=== PATIENT | male | born 1950 | race Caucasian/White ===

== ENCOUNTER → 2017-09-01 06:02 | Outpatient (CLI) | payer MEDICARE, OTHER, SELFPAY ==
[2017-09-01 07:47] LABS: AST(SGOT) 23 U/L (15-37); Alanine Aminotransfer ALT/SGPT 47 U/L (16-61); Albumin, Serum 3.5 g/dL (3.2-5.0); Alkaline Phosphatase 73 U/L (45-117); Bilirubin, Direct 0.09 mg/dL (0.00-0.30); Cholesterol 150 mg/dL (200); Globulin 3.2 g/dL (2.2-4.2); High Density Lipoprotein 61 mg/dL; Protein, Total 6.7 g/dL (6.4-8.2); Triglycerides 119 mg/dL; Very Low Density Lipoprotein 24 mg/dL (5-40)
== END ==
PROVIDERS: Family Provider Internal Medicine; PCP Internal Medicine; Visit Provider Internal Medicine Cardiovascular Disease
DX: E78.5 Hyperlipidemia, unspecified (principal); Z79.899 Other long term (current) drug therapy
CPT/HCPCS: 36415; 80061; 80076

== ENCOUNTER → 2017-09-24 09:30 | Outpatient (CLI) | payer MEDICARE, OTHER, SELFPAY ==
--- NOTE | 2017-09-24 09:33 | ECHOD_ITS ---
Reason For Study: Valve Replacement Procedure This was a 2D Doppler, Color Flow transthoracic echocardiogram. The exam was of adequate technical quality. Exam performed in department. Left Ventricle Normal LV size. Segmental dysfunction with preserved ejection fraction (see wall motion). The estimated ejection fraction is 60 %. Normal diastology for age. Basal inferoseptal: Hypokinetic. Mid-inferoseptal : Hypokinetic. Right Ventricle Normal RV size. Normal systolic function. Atria The left atrium is mildly enlarged. Normal right atrium. No doppler evidence for ASD. Mitral Valve There is no mitral annular calcification. Normal mitral valve. Trivial mitral valve insufficiency. Tricuspid Valve Normal tricuspid valve. Mild tricuspid valve insufficiency. Right ventricular systolic pressure estimated to be 27 mmHg. Aortic Valve Stable appearing bioprosthetic aortic valve apparatus. Trivial transvalvular insufficiency of the aortic valve. Pulmonic Valve The pulmonic valve is not well visualized. Mild (1+) pulmonic valve insufficiency. Great Vessels Mild to moderately dilated aortic root. Pericardium/Pleural No pericardial effusion. MMode/2D Measurements & Calculations LVIDd: 4.7 cm IVSd: 1.5 cm LVOT diam: 2.2 cm LVIDs: 2.5 cm LVPWd: 0.91 cm LVOT area: 3.7 cm2 RVDd: 3.8 cm FS: 46.2 % Ao root diam: 4.4 cm LAV(MOD-bp): 70.5 ml LA A4 area: 24.4 cm2 ACS: 1.3 cm LAV(MOD-bp) Indexed: 34.8 ml/m2 LA dimension: 5.3 cm LAV(MOD-sp2): 60.2 ml LAV(MOD-sp4): 73.7 ml RA A4 area: 16.2 cm2 Time Measurements MV dec time: 0.24 sec Doppler Measurements & Calculations MV E max octavio: 54.0 cm/sec Lat Peak E' Octavio: 14.8 cm/sec Med Peak E' Octavio: 6.3 cm/sec MV A max octavio: 68.3 cm/sec E/E' lat: 3.6 E/E' med: 8.5 MV E/A: 0.79 MV V2 max: 71.7 cm/sec MV P1/2t max octavio: 58.2 cm/sec Ao V2 max: 325.0 cm/sec MV max P.1 mmHg MV P1/2t: 83.9 msec Ao max P.3 mmHg MV V2 mean: 40.0 cm/sec MV dec slope: 203.2 cm/sec2 Ao V2 mean: 204.2 cm/sec MV mean P.73 mmHg MVA(P1/2t): 2.6 cm2 Ao mean P.3 mmHg MV V2 VTI: 20.6 cm Ao V2 VTI: 69.9 cm MVA(VTI): 6.2 cm2 ANSLEY(I,D): 1.8 cm2 ANSLEY(V,D): 1.4 cm2 LV V1 max: 127.8 cm/sec SV(LVOT): 127.6 ml PA V2 max: 154.1 cm/sec LV V1 max P.5 mmHg LV V1 mean P.1 mmHg LV V1 mean: 94.4 cm/sec LV V1 VTI: 34.7 cm TR max octavio: 247.0 cm/sec TR max P.4 mmHg Interpretation Summary Segmental dysfunction with preserved ejection fraction (see wall motion). The estimated ejection fraction is 60 %. The left atrium is mildly enlarged. Trivial mitral valve insufficiency. Mild tricuspid valve insufficiency. Stable appearing bioprosthetic aortic valve apparatus. Trivial transvalvular insufficiency of the aortic valve. Mild (1+) pulmonic valve insufficiency. 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 Right ventricular systolic pressure estimated to be 27 mmHg. Ordering Physician: Jake Beasley Referring Physician: Jake Beasley Performed By: Elmer Marcial RCS
== END ==
PROVIDERS: Family Provider Internal Medicine; PCP Internal Medicine; Visit Provider Internal Medicine Cardiovascular Disease
DX: I50.32 Chronic diastolic (congestive) heart failure (principal)
CPT/HCPCS: 93306

== ENCOUNTER → 2018-03-06 06:01 | Outpatient (CLI) | payer MEDICARE, OTHER, SELFPAY ==
[2018-03-06 07:56] LABS: AST(SGOT) 21 U/L (15-37); Alanine Aminotransfer ALT/SGPT 44 U/L (16-61); Albumin, Serum 3.6 g/dL (3.2-5.0); Alkaline Phosphatase 85 U/L (45-117); Bilirubin, Direct 0.14 mg/dL (0.00-0.30); Cholesterol 149 mg/dL (200); Globulin 3.5 g/dL (2.2-4.2); High Density Lipoprotein 54 mg/dL; Protein, Total 7.1 g/dL (6.4-8.2); Triglycerides 116 mg/dL; Very Low Density Lipoprotein 23 mg/dL (5-40)
== END ==
PROVIDERS: Family Provider Internal Medicine; PCP Internal Medicine; Referring Provider Internal Medicine Cardiovascular Disease; Visit Provider Internal Medicine Cardiovascular Disease
DX: E78.5 Hyperlipidemia, unspecified (principal)
CPT/HCPCS: 36415; 80061; 80076

== ENCOUNTER → 2018-09-17 | Outpatient (CLI) | payer MEDICARE, OTHER, SELFPAY ==
[2018-09-16 11:16] VITALS: BMI 27.9
[2018-09-17 08:17] LABS: AST(SGOT) 26 U/L (15-37); Alanine Aminotransfer ALT/SGPT 32 U/L (16-61); Albumin, Serum 3.7 g/dL (3.2-5.0); Alkaline Phosphatase 79 U/L (45-117); Bilirubin, Direct 0.15 mg/dL (0.00-0.30); Cholesterol 147 mg/dL (200); Globulin 3.4 g/dL (2.2-4.2); High Density Lipoprotein 44 mg/dL; Protein, Total 7.1 g/dL (6.4-8.2); Triglycerides 139 mg/dL; Very Low Density Lipoprotein 28 mg/dL (5-40)
== END | disposition home or self-care (01) ==
LOC: LAB 06:04
PROVIDERS: Family Provider Internal Medicine; PCP Internal Medicine; Referring Provider Internal Medicine Cardiovascular Disease; Visit Provider Internal Medicine Cardiovascular Disease
DX: E78.5 Hyperlipidemia, unspecified (principal)
CPT/HCPCS: 36415; 80061; 80076

== ENCOUNTER → 2019-04-07 06:02 | Outpatient (CLI) | payer MEDICARE, OTHER, SELFPAY ==
[2018-09-16 11:16] VITALS: BMI 27.9
[2019-04-07 08:04] LABS: AST(SGOT) 29 U/L (15-37); Alanine Aminotransfer ALT/SGPT 39 U/L (16-61); Albumin, Serum 3.9 g/dL (3.2-5.0); Alkaline Phosphatase 92 U/L (45-117); Bilirubin, Direct 0.14 mg/dL (0.00-0.30); Cholesterol 148 mg/dL (200); Globulin 3.6 g/dL (2.2-4.2); High Density Lipoprotein 49 mg/dL; Protein, Total 7.5 g/dL (6.4-8.2); Triglycerides 127 mg/dL; Very Low Density Lipoprotein 25 mg/dL (5-40)
== END ==
PROVIDERS: Family Provider Internal Medicine; PCP Internal Medicine; Referring Provider Internal Medicine Cardiovascular Disease; Visit Provider Internal Medicine Cardiovascular Disease
DX: E78.5 Hyperlipidemia, unspecified (principal)
CPT/HCPCS: 36415; 80061; 80076

== ENCOUNTER → 2019-09-21 12:27 | Outpatient (CLI) | payer MEDICARE, OTHER, SELFPAY ==
[2019-04-12 13:23] VITALS: BMI 28.1
--- NOTE | 2019-09-21 12:28 | ECHOD_ITS ---
Reason For Study: MURMUR Procedure This was a 2D Doppler, Color Flow transthoracic echocardiogram. The exam was of adequate technical quality. Exam performed in department. Left Ventricle Normal LV size. Left ventricular systolic function is normal. The estimated ejection fraction is 65 %. No evidence for diastolic dysfunction. No regional wall motion abnormalities noted. Right Ventricle Normal RV size. Normal systolic function. Atria The left atrium is mildly enlarged. Normal right atrium. No doppler evidence for ASD. Mitral Valve There is no mitral annular calcification. Normal mitral valve. Trivial mitral valve insufficiency. Tricuspid Valve Normal tricuspid valve. Mild tricuspid valve insufficiency. Right ventricular systolic pressure estimated to be 25 mmHg. Aortic Valve Mild focal aortic valve calcification. Mild to moderate aortic stenosis. Stable appearing bioprosthetic aortic valve apparatus. Mild transvalvular insufficiency of the aortic valve. Pulmonic Valve The pulmonic valve is not well visualized. Trivial pulmonic valve insufficiency. Great Vessels Mild to moderately dilated aortic root. Pericardium/Pleural No pericardial effusion. MMode/2D Measurements & Calculations LVIDd: 4.2 cm IVSd: 1.1 cm LVOT diam: 2.0 cm LVIDs: 3.0 cm LVPWd: 0.95 cm LVOT area: 3.2 cm2 RVDd: 4.7 cm FS: 30.3 % Ao root diam: 4.5 cm LAV(MOD-bp): 68.9 ml LA A4 area: 22.0 cm2 LAV(MOD-bp) Indexed: 33.7 ml/m2 LAV(MOD-sp2): 71.1 ml LAV(MOD-sp4): 63.9 ml RA A4 area: 16.3 cm2 Time Measurements MV dec time: 0.30 sec Doppler Measurements & Calculations MV E max octavio: 44.8 cm/sec Lat Peak E' Octavio: 11.3 cm/sec Med Peak E' Octaivo: 5.4 cm/sec MV A max octavio: 61.8 cm/sec E/E' lat: 4.0 E/E' med: 8.4 MV E/A: 0.73 Ao V2 max: 302.5 cm/sec AI max octavio: 400.5 cm/sec LV V1 max: 123.6 cm/sec Ao max P.6 mmHg AI max P.2 mmHg LV V1 max P.1 mmHg Ao V2 mean: 224.4 cm/sec AI dec slope: 304.1 cm/sec2 LV V1 mean P.4 mmHg Ao mean P.1 mmHg AI P1/2t: 385.7 msec LV V1 mean: 87.2 cm/sec Ao V2 VTI: 68.2 cm LV V1 VTI: 29.7 cm ANSLEY(I,D): 1.4 cm2 ANSLEY(V,D): 1.3 cm2 SV(LVOT): 96.2 ml PA V2 max: 134.6 cm/sec PI end-d octavio: 96.5 cm/sec TR max octavio: 236.1 cm/sec TR max P.3 mmHg Interpretation Summary Left ventricular systolic function is normal. The estimated ejection fraction is 65 %. The left atrium is mildly enlarged. Trivial mitral valve insufficiency. Mild tricuspid valve insufficiency. Stable appearing bioprosthetic aortic valve apparatus. Mild focal aortic valve calcification. Mild to moderate aortic stenosis. Mild transvalvular insufficiency of the aortic valve. Trivial pulmonic valve insufficiency. 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 Right ventricular systolic pressure estimated to be 25 mmHg. No evidence for diastolic dysfunction. Ordering Physician: Jake Beasley Referring Physician: ASHLEY AIKEN Performed By: Trixie Snider, RDCS, RVT
== END ==
PROVIDERS: PCP Internal Medicine; Referring Provider Internal Medicine Cardiovascular Disease; Visit Provider Internal Medicine Cardiovascular Disease
DX: I71.2 Thoracic aortic aneurysm, without rupture (principal); Z95.3 Presence of xenogenic heart valve
CPT/HCPCS: 93306

== ENCOUNTER → 2019-10-12 | Outpatient (CLI) | payer MEDICARE, OTHER, SELFPAY ==
[2019-04-12 13:23] VITALS: BMI 28.1
[2019-10-12 07:53] LABS: AST(SGOT) 26 U/L (15-37); Alanine Aminotransfer ALT/SGPT 37 U/L (16-61); Albumin, Serum 3.9 g/dL (3.2-5.0); Alkaline Phosphatase 102 U/L (45-117); Bilirubin, Direct 0.13 mg/dL (0.00-0.30); Cholesterol 146 mg/dL (200); Globulin 3.6 g/dL (2.2-4.2); High Density Lipoprotein 49 mg/dL; Protein, Total 7.5 g/dL (6.4-8.2); Triglycerides 114 mg/dL; Very Low Density Lipoprotein 23 mg/dL (5-40)
== END | disposition home or self-care (01) ==
PROVIDERS: PCP Internal Medicine; Referring Provider Internal Medicine Cardiovascular Disease; Visit Provider Internal Medicine Cardiovascular Disease
DX: E78.00 Pure hypercholesterolemia, unspecified (principal)
CPT/HCPCS: 36415; 80061; 80076

== ENCOUNTER → 2020-03-31 06:09 | Outpatient (CLI) | payer MEDICARE, OTHER, SELFPAY ==
[2019-10-18 10:18] VITALS: BMI 27.9
[2020-03-31 07:40] LABS: AST(SGOT) 26 U/L (15-37); Alanine Aminotransfer ALT/SGPT 41 U/L (16-61); Albumin, Serum 3.9 g/dL (3.2-5.0); Alkaline Phosphatase 102 U/L (45-117); Bilirubin, Direct 0.17 mg/dL (0.00-0.30); Cholesterol 148 mg/dL (200); Globulin 3.6 g/dL (2.2-4.2); High Density Lipoprotein 55 mg/dL; Protein, Total 7.5 g/dL (6.4-8.2); Triglycerides 106 mg/dL; Very Low Density Lipoprotein 21 mg/dL (5-40)
== END ==
PROVIDERS: PCP Internal Medicine; Referring Provider Internal Medicine Cardiovascular Disease; Visit Provider Internal Medicine Cardiovascular Disease
DX: E78.5 Hyperlipidemia, unspecified (principal)
CPT/HCPCS: 36415; 80061; 80076